=== PATIENT | female | born 1935 | race Caucasian/White ===

== ENCOUNTER → 2020-11-09 | Day surgery (SDC) | payer OTHER ==
[~2020-11-09] VITALS: Ht 157.5 cm; Wt 72.6 kg
[~2020-11-09] MED LIST: ASA325 M1 PO; ATORVASTATIN CA10 MG; COZAAR50 MG; DUI500 PO; NEURONTIN300 MG; PERCOCET 5-3251 EACH PO; SYNTHROID175 MCG PO; TOPROL XL50 M1; WHEELCHAIR
== END | disposition home or self-care (01) ==
LOC: ER 10:41 → CIR.AMB 13:11 → ER 13:11 → CIR.AMB 13:11 → SURH 20:37 → SEC-K 20:37 → ER 20:37 → EDSTATUS 11-10 → SURH 11-10 04:19 → SEC-K 11-10 04:19 → SURH 11-10 16:59
PROVIDERS: ATTEND Orthopaedic Surgery
DX: S82.61XA Displaced fracture of lateral malleolus of right fibula, initial encounter for closed fracture (principal); S93.421A Sprain of deltoid ligament of right ankle, initial encounter; S93.491A Sprain of other ligament of right ankle, initial encounter; Z20.822 Contact with and (suspected) exposure to COVID-19
CPT/HCPCS: 27792; 20902; 27695; C1776